=== PATIENT | male | born 1975 | race Two or more races ===

== ENCOUNTER 2021-12-03 21:39 | Emergency (ER) | payer SELFPAY ==
[~2021-12-03] VITALS: Ht 170.2 cm; Wt 100.0 kg
[2021-12-04] MEDS ORDERED: FLUORESCEIN SOD OPTH TEST STRIP EACHEYE ONE (04:30)
[2021-12-04] MEDS ORDERED: TETRACAINE HCL 0.5% OPTH(EYE) SOLN 4ML EACHEYE ONE (04:30)
[2021-12-04 05:00] VITALS: BP 148/84
[2021-12-04] MEDS ORDERED: POLYSOL15 OP (05:24)
[2021-12-04] MEDS ORDERED: AMOX500T3 PO (05:24)
== END 2021-12-04 05:38 | disposition home or self-care (01) ==
LOC: ER 21:40
DX: H10.9 Unspecified conjunctivitis (principal); J02.9 Acute pharyngitis, unspecified

== ENCOUNTER 2022-04-25 06:19 | Inpatient (IN) | payer MEDICAID, OTHER ==
[~2022-04-25] VITALS: Ht 170.2 cm; Wt 102.6 kg
[~2022-04-25 06:19] MED LIST: AMOX500T3 PO; POLYSOL15 OP
[2022-04-25 06:55] LABS: Basophils # (auto) 0.1 10 ^3/uL (0-0.2); Basophils % (auto) 1.2 % (0.0-2.0); Eosinophils # (auto) 0.1 10 ^3/uL (0-0.8); Eosinophils % (auto) 1.7 % (0.0-7.0); Hematocrit 48.2 % (41.0-53.0); Hemoglobin 16.5 g/dL (13.5-17.5); Lymphocytes # (auto) 2.8 10 ^3/uL (0.4-5.4); Mean Corpuscular Hemoglobin 31.7 pg (28.0-32.0); Mean Corpuscular Hgb Conc. 34.2 g/dL (32.0-36.0); Mean Corpuscular Volume 92.5 fL (80.0-100.0); Monocytes # (auto) 0.4 10 ^3/uL (0-1.3); Monocytes % (auto) 5.8 % (0.0-12.0); Neutrophils # (auto) 2.8 10 ^3/uL (1.6-8.6); Neutrophils % (auto) 45.3 % (37.0-80.0); Nucleated Red Blood Cells % 0.2 %; Red Blood Cells 5.21 10^6/uL (4.5-5.90); Red Cell Distribution Width 14.1 % (11.8-14.3); White Blood Cell 6.1 10^3/uL (4.4-10.8)
[2022-04-25 07:15] LABS: Albumin 4.2 g/dL (3.4-5.0); BUN/Creatinine Ratio 9.1; Calcium 9.3 mg/dL (8.5-10.1); Potassium 3.2 mmol/L (3.5-5.1)
[2022-04-25 07:23] LABS: Bilirubin, Total 1.6 mg/dL (0.2-1.0); Total Protein 8.1 g/dL (6.4-8.2)
[2022-04-25] MEDS ORDERED: SODIUM CHLORIDE 0.9% 1,000 ML IV ONE (07:45)
[2022-04-25] MEDS ORDERED: ASPirin 81 mg TAB PO ONE (07:45)
[2022-04-25] MEDS ORDERED: POTASSIUM EFFERVESENT TAB 25 MEQ PO ONE (07:45)
[2022-04-25] MEDS ORDERED: MORPHINE SULFATE 4 MG/ML SYR/VIAL IV PRN (09:30)
[2022-04-25] MEDS ORDERED: ACETAMINOPHEN 325 MG TAB PO PRN (09:30)
[2022-04-25] MEDS ORDERED: ENOXAPARIN SOD 30 MG/0.3 ML SYRINGE IV ONE (09:30)
[2022-04-25] MEDS ORDERED: ONDANSETRON HCL 4 MG/2 ML VIAL IV PRN (09:30)
[2022-04-25] MEDS ORDERED: NITROGLYCERIN 0.4 MG SL TAB SL PRN (09:30)
[2022-04-25] MEDS: ASPirin 81 mg TAB PO SCH (11:29)
[2022-04-25] MEDS: DOCUSATE SOD 100 MG CAP PO SCH (11:29)
[2022-04-25] MEDS: SODIUM CHLORIDE 0.9% 1,000 ML IV SCH ×2 (11:30→18:45)
[2022-04-25] MEDS: METOPROLOL TARTRATE 25 MG TAB PO SCH ×2 (11:30→21:47)
[2022-04-25] MEDS ORDERED: ENOXAPARIN SOD 40 MG/0.4 ML SYRINGE SC ONE (11:30)
[2022-04-25] MEDS ORDERED: ATORVASTATIN 20 MG TAB PO SCH (22:00)
[2022-04-26] MEDS: SODIUM CHLORIDE 0.9% 1,000 ML IV SCH ×3 (03:05→19:01)
[2022-04-26 05:29] LABS: Basophils # (auto) 0 10 ^3/uL (0-0.2); Basophils % (auto) 0.6 % (0.0-2.0); Eosinophils # (auto) 0.1 10 ^3/uL (0-0.8); Eosinophils % (auto) 2.4 % (0.0-7.0); Hematocrit 41.5 % (41.0-53.0); Hemoglobin 14.1 g/dL (13.5-17.5); Lymphocytes # (auto) 2.2 10 ^3/uL (0.4-5.4); Lymphocytes % (auto) 40.5 % (10.0-50.0); Mean Corpuscular Hemoglobin 31.8 pg (28.0-32.0); Mean Corpuscular Volume 93.4 fL (80.0-100.0); Monocytes # (auto) 0.3 10 ^3/uL (0-1.3); Monocytes % (auto) 5.6 % (0.0-12.0); Neutrophils # (auto) 2.7 10 ^3/uL (1.6-8.6); Neutrophils % (auto) 50.9 % (37.0-80.0); Nucleated Red Blood Cells % 0.2 %; Red Blood Cells 4.44 10^6/uL (4.5-5.90); Red Cell Distribution Width 13.8 % (11.8-14.3); White Blood Cell 5.4 10^3/uL (4.4-10.8)
[2022-04-26 05:37] LABS: Albumin 3.4 g/dL (3.4-5.0); Calcium 8.5 mg/dL (8.5-10.1); Potassium 3.8 mmol/L (3.5-5.1)
[2022-04-26 05:39] LABS: BUN/Creatinine Ratio 10.1
[2022-04-26 05:43] LABS: Bilirubin, Total 0.6 mg/dL (0.2-1.0); Total Protein 6.7 g/dL (6.4-8.2)
[2022-04-26] MEDS: DOCUSATE SOD 100 MG CAP PO SCH ×2 (10:00→10:41)
[2022-04-26] MEDS: ASPirin 81 mg TAB PO SCH (10:41)
[2022-04-26] MEDS: METOPROLOL TARTRATE 25 MG TAB PO SCH ×2 (10:42→21:24)
[2022-04-26 16:57] VITALS: BP 150/100
[2022-04-26 20:00] VITALS: BP 128/79
[2022-04-26 22:04] VITALS: BP 151/97
[2022-04-27] MEDS: SODIUM CHLORIDE 0.9% 1,000 ML IV SCH ×2 (02:25→10:45)
[2022-04-27 05:04] VITALS: BP 147/85
[2022-04-27 08:00] VITALS: BP 132/83
[2022-04-27 08:57] VITALS: BP 132/83
[2022-04-27] MEDS: ASPirin 81 mg TAB PO SCH (09:55)
[2022-04-27] MEDS: DOCUSATE SOD 100 MG CAP PO SCH ×2 (09:55→09:58)
[2022-04-27] MEDS: METOPROLOL TARTRATE 25 MG TAB PO SCH (09:57)
[2022-04-27 12:57] VITALS: BP 128/84
== END 2022-04-27 14:15 | disposition home or self-care (01) | DRG 313 ==
LOC: ER 06:19 → TELE 09:31 → TELE-WESTW 04-26 16:06
PROVIDERS: ADMIT Nurse Practitioner Family; ATTEND Internal Medicine
DX: R07.89 Other chest pain (principal); F17.210 Nicotine dependence, cigarettes, uncomplicated; I10 Essential (primary) hypertension; E87.6 Hypokalemia; G40.909 Epilepsy, unspecified, not intractable, without status epilepticus; Z20.822 Contact with and (suspected) exposure to COVID-19; R00.0 Tachycardia, unspecified; R74.01 Elevation of levels of liver transaminase levels; Z88.8 Allergy status to other drugs, medicaments and biological substances
CPT/HCPCS: 36415; 71046; 76705; 80053; 83735; 83880; 84484; 85025; 85379; 87426; 93005; 93306; 96360; 96361; G0378